=== PATIENT | female | born 1955 | race Caucasian/White ===

== ENCOUNTER 2020-01-14 06:30 | Emergency (ER) | payer BC, MEDICAID, MEDICARE ==
[2020-01-14] MEDS ORDERED: Sodium Chloride 0.9% 10 ML Syringe FLUSH PRN (06:43)
[2020-01-14] MEDS ORDERED: Sodium Chloride 0.9% 1,000 ML IV ONE (06:45)
[2020-01-14] MEDS ORDERED: Ondansetron 4 MG/2 ML SDV IVPUSH ONE (06:45)
[2020-01-14] MEDS ORDERED: LORazepam 2 MG/ML SDV IVPUSH ONE (06:45)
[2020-01-14 07:36] VITALS: BP 177/113; PULSE 81
[2020-01-14 07:44] LABS: CHLORIDE,CL 100 mmol/L (98-107); SODIUM,NA 137 mmol/L (136-145)
[2020-01-14 07:46] LABS: ANION GAP 15.6 mmol/L (10-20)
--- NOTE | 2020-01-14 07:51 | EDM.PDOC ---
ED HPI GENERAL MEDICAL PROBLEM - General Chief Complaint: Gastrointestinal Problem Stated Complaint: Nausea / Vomiting Time Seen by Provider: 01/14/20 06:30 Source of Information: Reports: Patient History Limitations: Reports: No Limitations - History of Present Illness INITIAL COMMENTS - FREE TEXT/NARRATIVE: Pt. presents to ER with complaints of nausea, vomiting, and diarrhea for several days. She states that she often has troubles with this when she is stressed. She states that several family members have been ill/have recently. She states that she has been taking pepto bismol but this has not helped. She denies any fever or chills. No chest pain or shortness of breath. No focal abdominal discomfort. She complains of diffuse cramping only. Denies any dysuria. No recent travel out of the country/camping. Denies any bloody stools/black or tarry stools. Denies any recent hospitalizations/known exposure to c-diff. Pt. states that she has been experiencing the above symptoms for approx. 4 days. Pt. states that the only medication she is taking is metoprolol tartrate 50mg BID. She previously had been on an antidepressant and alprazolam for anxiety. She states that she is a heavy binge drinker, but states that she does not drink every day. She denies any agitation or withdrawl symptoms if she does not consume alcohol. Onset Date: 01/10/20 Location: Reports: Abdomen, Generalized Associated Symptoms: Reports: Malaise, Nausea/Vomiting. Denies: Confusion, Chest Pain, Cough, Diaphoresis, Fever/Chills, Headaches, Rash, Seizure, Shortness of Breath - Related Data Allergies Allergy/AdvReac Type Severity Reaction Status Date / Time codeine Allergy Nausea Verified 01/14/20 07:33 Home Meds: Home Meds Aspirin [Halfprin] 81 mg PO DAILY 02/17/14 [History] Calcium Carbonate/Vitamin D3 [Calcium 600 + Vit D 400] 1 tab PO DAILY 02/17/14 [ History] Metoprolol Succinate [Toprol Xl] 100 mg PO DAILY 02/17/14 [History] Sertraline [Zoloft] 100 mg PO DAILY 02/17/14 [History] Past Medical History Psychiatric History: Reports: Addiction, Anxiety Social & Family History - Tobacco Use Smoking Status *Q: Never Smoker - Recreational Drug Use Recreational Drug Use: Yes Recreational Drug Type: Reports: Marijuana/Hashish Recreational Drug Use Frequency: Socially ED ROS GENERAL - Review of Systems Review Of Systems: See Below Constitutional: Reports: No Symptoms HEENT: Reports: No Symptoms Respiratory: Reports: No Symptoms Cardiovascular: Reports: No Symptoms Endocrine: Reports: No Symptoms GI/Abdominal: Reports: Anorexia, Diarrhea, Decreased Appetite, Nausea, Vomiting. Denies: Abdominal Pain, Black Stool, Bloody Stool, Constipation, Distension, Flatus, Hematemesis, Hematochezia, Melena, Mucous in Stool, Stool Incontinence : Reports: No Symptoms Musculoskeletal: Reports: No Symptoms Skin: Reports: No Symptoms Neurological: Reports: No Symptoms Psychiatric: Reports: Anxiety Hematologic/Lymphatic: Reports: No Symptoms Immunologic: Reports: No Symptoms ED EXAM, GENERAL - Physical Exam Exam: See Below Exam Limited By: No Limitations General Appearance: Alert, WD/WN, No Apparent Distress Eye Exam: Bilateral Eye: EOMI, PERRL Throat/Mouth: Normal Inspection, Normal Lips, Normal Teeth, Normal Gums, Normal Oropharynx, Normal Voice, No Airway Compromise Head: Atraumatic, Normocephalic Neck: Normal Inspection, Supple, Non-Tender, Full Range of Motion Respiratory/Chest: No Respiratory Distress, Lungs Clear, Normal Breath Sounds, No Accessory Muscle Use, Chest Non-Tender Cardiovascular: Normal Peripheral Pulses, Regular Rate, Rhythm, No Edema, No Gallop, No JVD, No Murmur, No Rub Peripheral Pulses: 4+: Radial (L) GI/Abdominal: Normal Bowel Sounds, Soft, Non-Tender, No Organomegaly, No Distention, No Mass (Female) Exam: Deferred Rectal (Female) Exam: Deferred Back Exam: Normal Inspection, Full Range of Motion Extremities: Normal Inspection, Normal Range of Motion, Non-Tender, No Pedal Edema, Normal Capillary Refill Neurological: Alert, Oriented, CN II-XII Intact, Normal Cognition, Normal Gait, Normal Reflexes, No Motor/Sensory Deficits Psychiatric: Anxious Skin Exam: Warm, Dry, Intact, Normal Color, No Rash Lymphatic: No Adenopathy Course - Vital Signs Last Recorded V/S: Last Vital Signs Temp 36.6 C 01/14/20 07:35 Pulse 81 01/14/20 07:35 Resp 16 01/14/20 07:35 BP 177/113 H 01/14/20 07:35 Pulse Ox 97 01/14/20 07:35 - Orders/Labs/Meds Orders: Active Orders 24 hr Category Date Time Status Sodium Chloride 0.9% [Saline Flush] Med 01/14/20 06:43 Active 10 ml FLUSH ASDIRECTED PRN Peripheral IV Insertion Adult [OM.PC] Routine Oth 01/14/20 06:43 Ordered Medication Orders Sodium Chloride (Saline Flush) 10 ml FLUSH ASDIRECTED PRN PRN Reason: Keep Vein Open Labs: Laboratory Tests 01/14/20 01/14/20 01/14/20 Range/Units 07:04 07:04 07:30 WBC 8.2 (4.0-10.0) x10^3/uL RBC 3.69 L (4.00-5.50) x10^6/uL Hgb 8.5 L (12.0-16.0) g/dL Hct 28.2 L (33.0-47.0) % MCV 76.4 L (78.0-93.0) fL MCH 23.0 L (26.0-32.0) pg MCHC 30.1 L (32.0-36.0) g/dL RDW Coeff of Chuy 19.8 H (10.0-15.0) % Plt Count 292 (130-400) x10^3/uL Neut % (Auto) 73.4 (50.0-80.0) % Lymph % (Auto) 15.3 L (25.0-50.0) % [place] % (Auto) 10.4 (2.0-11.0) % Eos % (Auto) 0.7 (0.0-4.0) % Baso % (Auto) 0.2 (0.2-1.2) % Sodium 137 (136-145) mmol/L Potassium 3.6 (3.5-5.1) mmol/L Chloride 100 (98-107) mmol/L Carbon Dioxide 25 (21-32) mmol/L Anion Gap 15.6 (10-20) mmol/L BUN 8 (7-18) mg/dL Creatinine 0.9 (0.55-1.02) mg/dL Est Cr Clr Drug Dosing 44.76 mL/min Estimated GFR (MDRD) > 60 Glucose 125 H (74-106) mg/dL Calcium 9.3 (8.5-10.1) mg/dL Corrected Calcium 9.70 (8.5-10.1) mg/dL Phosphorus 3.7 (2.6-4.7) mg/dL Magnesium 1.8 (1.8-2.4) mg/dL Total Bilirubin 0.2 (0.2-1.0) mg/dL AST 19 (15-37) U/L ALT 28 (14-59) U/L Alkaline Phosphatase 82 (46-116) U/L C-Reactive Protein 1.1 H (<=0.9) mg/dL Total Protein 7.3 (6.4-8.2) g/dL Albumin 3.5 (3.4-5.0) g/dL Globulin 3.8 Albumin/Globulin Ratio 0.92 TSH, Ultra Sensitive 1.893 (0.358-3.74) uIU/mL Urine Color Yellow (YELLOW) Urine Appearance Clear (CLEAR) Urine pH 7.5 (5.0-8.0) Ur Specific [place] 1.020 Urine Protein Negative (NEGATIVE) mg/dL Urine Glucose (UA) Negative (NEGATIVE) mg/dL Urine Ketones Negative (NEGATIVE) mg/dL Urine Occult Blood Negative (NEGATIVE) Urine Nitrite Negative (NEGATIVE) Urine Bilirubin Negative (NEGATIVE) Urine Urobilinogen 0.2 (0.2) EU/dL Ur Leukocyte Esterase Negative (NEGATIVE) Urine RBC 0-5 (NOT SEEN) /HPF Urine WBC Not seen (NOT SEEN) /HPF Ur Squamous Epith Cells Occasional H (NEGATIVE) /HPF Urine Bacteria Not seen (NEGATIVE) /HPF Urine Mucus Rare H (NEGATIVE) /LPF Ethyl Alcohol < 3 (0-3) mg/dL Meds: Medications Generic Name Dose Route Start Last Admin Trade Name Freq PRN Reason Stop Dose Admin Sodium Chloride 10 ml 01/14/20 06:43 Saline Flush FLUSH ASDIRECTED PRN Keep Vein Open Discontinued Medications Generic Name Dose Route Start Last Admin Trade Name Freq PRN Reason Stop Dose Admin Sodium Chloride 1,000 mls @ 1,000 mls/hr 01/14/20 06:45 01/14/20 06:59 Normal Saline IV 01/14/20 07:44 1,000 mls/hr .BOLUS ONE Administration Lorazepam 1 mg 01/14/20 06:45 01/14/20 06:59 Ativan IVPUSH 01/14/20 06:46 1 mg STAT ONE Administration Ondansetron HCl 4 mg 01/14/20 06:45 01/14/20 06:59 Zofran IVPUSH 01/14/20 06:46 4 mg ONETIME ONE Administration Departure - Departure Time of Disposition: 08:31 Disposition: Home, Self-Care 01 Clinical Impression: Gastroenteritis, Anemia - Discharge Information Instructions: Alprazolam tablets, Ondansetron oral dissolving tablet, Viral Gastroenteritis, Adult, [id number] Referrals: Jose G Osorio PA-C [Primary Care Provider] - Forms: ED Department Discharge Additional Instructions: Alprazolam 0.5mg 1 every 6 hours as needed for anxiety twice daily as needed for anxiety/sleep. Immodium 2mg 1 tab up to 4 times daily as needed for diarrhea. Zofran 4mg ODT 1 every 6 hours as needed for nausea/vomiting. Follow-up in clinic today. I think you would benefit from being back on your antidepressant/antianxiety meds. You need to have some other labs done for your low hemoglobin as well. Return to ER if you are unable to hold down fluids. Bring your stool sample to the lab at the hospital within 30minutes of having a bowel movement. We will forward the results to Jose G Osorio as well. Sepsis Event Note - Evaluation Sepsis Screening Result: No Definite Risk - Focused Exam Vital Signs: Vital Signs Temp Pulse Resp BP Pulse Ox 01/14/20 07:35 36.6 C 81 16 177/113 H 97 Date Exam was Performed: 01/14/20 Time Exam was Performed: 08:30 - Problem List Review Problem List Initiated/Reviewed/Updated: Yes - My Orders Last 24 Hours: My Active Orders 01/14/20 06:43 Sodium Chloride 0.9% [Saline Flush] 10 ml FLUSH ASDIRECTED PRN Peripheral IV Insertion Adult [OM.PC] Routine - Assessment/Plan Last 24 Hours: My Active Orders 01/14/20 06:43 Sodium Chloride 0.9% [Saline Flush] 10 ml FLUSH ASDIRECTED PRN Peripheral IV Insertion Adult [OM.PC] Routine Plan: Pt. is feeling much better after IV fluids, zofran and ativan. Labs are all within normal limits, with the exception of low hemoglobin. She has had iron deficiency anemia in the past, but I did order FOBT as well as stool O and P, culture, and cdiff. She will bring the sample to the hospital lab within 30min of having her next bowel movement. Advised to follow-up in clinic with MELINDA Choi. Will forward all results to him. I think this patient would benefit from restarting her anti-depressants. She was given a short course of alprazolam for acute anxiety. She was also started on Zofran ODT 4mg every 6 hours for nausea/vomiting. Advised to return to ER if she is unable to hold down fluids, if she has chest pain, shortness of breath, or lightheadedness.
== END 2020-01-14 08:40 | disposition home or self-care (01) ==
LOC: VM.ED 06:30
DX: K52.9 Noninfective gastroenteritis and colitis, unspecified (principal); D64.9 Anemia, unspecified; Z88.5 Allergy status to narcotic agent; Z79.82 Long term (current) use of aspirin
CPT/HCPCS: 36415; 80053; 80307; 81001; 83735; 84100; 84443; 85025; 86140; 96361; 96374; 96375; 99284; J2060; J2405; J7030

== ENCOUNTER 2021-04-22 01:55 | Emergency (ER) | payer MEDICARE, OTHER ==
[2021-04-22] MEDS ORDERED: Amoxicillin/Clavulanate K 875-125 MG Tab PO ONE (02:05)
[2021-04-22] MEDS ORDERED: predniSONE 20 MG Tab PO ONE (02:06)
--- NOTE | 2021-04-22 02:19 | EDM.PDOC ---
ED HPI GENERAL MEDICAL PROBLEM - General Stated Complaint: facial swelling Time Seen by Provider: 04/22/21 01:55 Source of Information: Reports: Patient History Limitations: Reports: No Limitations - History of Present Illness INITIAL COMMENTS - FREE TEXT/NARRATIVE: Pt. presents to ER with complaints of swelling to the face after having some dental work done today. Pt. states that she had a filling placed today and underwent injection of local anesthetic. She states that she noticed her lip was a bit enlarge earlier in the evening, but she work up to significant edema to the face particularly on the L side in the area of the dental work. She does have swelling to lips. No swelling to tongue. Pt. denies any wheezing or shortness of breath. Denies any sore throat, unilateral neck pain or mass, chest pain, nausea, vomiting, or diarrhea. Onset: Today Location: Reports: Head, Face - Related Data Allergies Allergy/AdvReac Type Severity Reaction Status Date / Time codeine Allergy Nausea Verified 01/14/20 07:33 Home Meds: Home Meds Aspirin [Halfprin] 81 mg PO DAILY 02/17/14 [History] Calcium Carbonate/Vitamin D3 [Calcium 600 + Vit D 400] 1 tab PO DAILY 02/17/14 [History] Metoprolol Succinate [Toprol Xl] 100 mg PO DAILY 02/17/14 [History] Sertraline [Zoloft] 100 mg PO DAILY 02/17/14 [History] Past Medical History Psychiatric History: Reports: Addiction, Anxiety ED ROS GENERAL - Review of Systems Review Of Systems: Comprehensive ROS is negative, except as noted in HPI. ED EXAM, GENERAL - Physical Exam Exam: See Below Exam Limited By: No Limitations General Appearance: Alert, WD/WN, No Apparent Distress Eye Exam: Bilateral Eye: EOMI, Normal Fundi, Normal Inspection, PERRL Throat/Mouth: Normal Inspection (No tongue swelling. Both lips appear to be edematous equally. No obvious abscess noted in area. No unilateral neck or oropharyngeal edema noted. ) Neck: No: Limited Range of Motion, Lymphadenopathy (L), Lymphadenopathy (R) Respiratory/Chest: No Respiratory Distress, Lungs Clear, Normal Breath Sounds, No Accessory Muscle Use, Chest Non-Tender Cardiovascular: Normal Peripheral Pulses, Regular Rate, Rhythm, No Edema, No Gallop, No JVD, No Murmur, No Rub Course - Orders/Labs/Meds Meds: Medications Discontinued Medications Generic Name Dose Route Start Last Admin Trade Name Heath PRN Reason Stop Dose Admin Amoxicillin/Clavulanate Potassium 1 tab 04/22/21 02:05 Amoxicillin/Clavulanate K 875-125 Mg Tab PO 04/22/21 02:06 ONETIME ONE Prednisone 40 mg 04/22/21 02:06 Prednisone 20 Mg Tab PO 04/22/21 02:07 ONETIME ONE Departure - Departure Time of Disposition: 02:20 Disposition: Home, Self-Care 01 Clinical Impression: Swelling of left side of face - Discharge Information Instructions: Amoxicillin; Clavulanic Acid Tablets, Prednisone tablets, Probiotics Additional Instructions: Augmentin 875mg 1 twice daily for 10 days Prednisone 20mg 2 tabs daily for 8 days Return to ER if you have trouble swallowing or have trouble breathing. Follow-up with dentist in the next few days. - Problem List Review Problem List Initiated/Reviewed/Updated: Yes - Assessment/Plan Plan: Etiology of this swelling is unknown. It could be related to injection of medication into the area, or it could be a cellulitis caused be injection of the area. No large abscess noted. Pt. was subsequent started on prednisone 40mg once daily and augmentin 875mg twice daily in the event there is an infectious component to this. She is not wheezing. No rash noted. Advised pt. to follow-up with dentist SHAUNA.
== END 2021-04-22 02:33 | disposition home or self-care (01) ==
LOC: VM.ED 01:55
DX: R22.0 Localized swelling, mass and lump, head (principal); Z88.5 Allergy status to narcotic agent; Z79.82 Long term (current) use of aspirin
CPT/HCPCS: 99283; A9270-GY; J7512

== ENCOUNTER 2022-05-08 05:01 | Emergency (ER) | payer MEDICARE, OTHER ==
[2022-05-08 05:25] VITALS: BP 141/97; PULSE 96
[2022-05-08] MEDS ORDERED: Acetaminophen/HYDROcodone 325-10 MG Tab PO ONE (06:03)
[2022-05-08] MEDS ORDERED: Take Home: Acetaminophen/HYDROcodone 325-5 MG, 5 Tab Pack PO ONE (06:42)
[2022-05-08] MEDS ORDERED: Take Home: Ondansetron 4 MG Tab.DIS, 5 Tab Pack PO ONE (06:55)
== END 2022-05-08 07:04 | disposition home or self-care (01) ==
LOC: VM.ED 05:01
DX: S82.091A Other fracture of right patella, initial encounter for closed fracture (principal); Z88.5 Allergy status to narcotic agent; Z79.82 Long term (current) use of aspirin; Z79.899 Other long term (current) drug therapy; W18.30XA Fall on same level, unspecified, initial encounter
CPT/HCPCS: 73562-RT; 99283; 99283-25; A9270-GY